=== PATIENT | male | born 1995 ===

== ENCOUNTER 2020-12-13 00:55 | Outpatient (CLI) | payer SELFPAY | END 2020-12-13 00:56 | disposition EMS.NT | LOC: EMS 00:55 | DX: S61.512A Laceration without foreign body of left wrist, initial encounter (principal); V89.2XXA Person injured in unspecified motor-vehicle accident, traffic, initial encounter; Y93.89 Activity, other specified; Y92.414 Local residential or business street as the place of occurrence of the external cause ==